=== PATIENT | female | born 2000 | race Hispanic/Latino ===

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

== ENCOUNTER 2020-01-09 15:26 | Day surgery (SDC) | payer OTHER ==
[2020-01-09] MEDS ORDERED: hydrALAZINE 20 MG/ML VIAL SLOW IVP PRN (16:57)
[2020-01-09 17:26] VITALS: BMI 36.6
[2020-01-09 17:53] LABS: Amnisure Test No Membranes Rupture (No Rupture)
[2020-01-09 17:54] LABS: Amnisure Internal Control QC ACCEPTABLE (ACCEPTABLE)
--- NOTE | 2020-01-09 19:30 | PRG ---
DATE OF SERVICE: 01/09/2020 PRESENTING COMPLAINT: Clear vaginal discharge. HISTORY OF PRESENT ILLNESS: Ms. Cruz is a 19-year-old G1 at 25 weeks, reports several days of clear discharge. She called [facility] and they could not get her appointment, so she decided to come to the emergency room. She denies bleeding or contractions, and reports an active fetus. SACK [employer]KER HISTORY: No OB chart available. The patient states she has had uncomplicated . PAST MEDICAL HISTORY: None. PAST SURGICAL HISTORY: None. ALLERGIES: DENIES. MEDICATIONS: vitamins. SOCIAL HISTORY: Denies tobacco, alcohol, or IV drug use. FAMILY HISTORY: Noncontributory. REVIEW OF SYSTEMS: Noncontributory. PHYSICAL EXAMINATION: GENERAL: Temperature 98.2, pulse 85, respirations 18, blood pressure 127/82. HEENT: Within normal limits. LUNGS: Clear to auscultation bilaterally. HEART: Regular rhythm. ABDOMEN: Soft, nontender. Fundal height 25. FHTs 150s. : Vulva without lesions. Vagina, slight thin discharge. AmniSure and VB3 collected. Cervical exam deferred. EXTREMITIES: Without clubbing, cyanosis, or edema. LABORATORY DATA: Laboratory revealed a negative AmniSure and a positive VB3 for Gardnerella. IMPRESSION: Bacterial vaginosis secondary to Gardnerella, second trimester . PLAN: Discharge home. Prescription given to the patient for Flagyl 500 p.o. b.i.d. x5 days. Keep scheduled followup with Dr. Denney. Job ID: [id number]
== END 2020-01-09 18:47 | disposition home health service (06) ==
LOC: L&D/OP 15:26
PROVIDERS: ATTEND Family Medicine
DX: O23.592 Infection of other part of genital tract in pregnancy, second trimester (principal); B96.89 Other specified bacterial agents as the cause of diseases classified elsewhere; Z3A.25 25 weeks gestation of pregnancy
CPT/HCPCS: 84112; 87480; 87510; 87660; 99284

== ENCOUNTER 2020-03-30 18:30 | Day surgery (SDC) | payer OTHER ==
[2020-03-30 19:20] VITALS: BMI 33.8
[2020-03-30 19:25] VITALS: BP 118/69; TEMP 98.9
[2020-03-30] MEDS ORDERED: hydrALAZINE 20 MG/ML VIAL SLOW IVP PRN (19:39)
[2020-03-30 20:04] LABS: Bilirubin Negative (Negative); Blood, Urine Negative (Negative); Clarity Clear (Clear); Glucose, Urine (Dipstick) Negative (Negative); Ketone, Urine Negative (Negative); Leukocyte Negative (Negative); Nitrite Negative (Negative); Protein, Urine (Dipstick) Negative (Neg-Trace); Specific Gravity, Urine 1.015 (1.005-1.030); Urobilinogen 0.2 mg/dL (Less than 2)
--- NOTE | 2020-03-31 16:03 | SS ---
DATE OF ADMISSION: 03/30/2020 DATE OF DISCHARGE: 03/30/2020 REGULAR PHYSICIAN: Aneudy Denney MD. CHIEF COMPLAINT: Cramping at home. HISTORY OF PRESENT ILLNESS: Ms. Cruz is a 19-year-old , G1, P0, with an estimated date of confinement of 04/01/2020, who presents complaining of cramping after being seen in Dr. Denney's office this afternoon. She does report an increase in urinary frequency, but denies ruptured membranes. Her care has been with Dr. Denney and has been reportedly without complications. PAST MEDICAL HISTORY: None. PAST SURGICAL HISTORY: None. CURRENT MEDICATIONS: vitamins. ALLERGIES: NO KNOWN ALLERGIES. SOCIAL HISTORY: Denies tobacco, alcohol, or drug use. FAMILY HISTORY: Unremarkable. REVIEW OF SYSTEMS: Denies nausea, vomiting, fever, chills, ruptured membranes, vaginal bleeding. Positive for urinary frequency. PHYSICAL EXAMINATION: VITAL SIGNS: Blood pressure is 118/69. Remainder of her vital signs are stable. GENERAL: She is pleasant, quiet, and in no acute distress. ABDOMEN: Soft, nontender, and gravid. Pelvic examination by Labor nurse shows the cervix to be closed and thick. heart rate tracing is stable. Spontaneous accelerations are seen. No decelerations are noted. Irregular irritability is noted. LABORATORY DATA: Urinalysis on straight cath shows a specific gravity of 1.015, negative protein, negative glucose, negative ketones, negative blood, negative nitrites, negative bilirubin and negative leukocyte esterase. ASSESSMENT: 1. 39-week intrauterine . 2. No evidence of urinary tract infection. PLAN: The patient will be dismissed to home. Labor precautions were reviewed with her and her mother in detail. She voiced understanding of her discharge instructions and was sent home in good condition. Job ID: [id number]
== END 2020-03-30 20:41 | disposition home health service (06) ==
LOC: L&D/OP 18:30
PROVIDERS: ATTEND Family Medicine
DX: O99.89 Other specified diseases and conditions complicating pregnancy, childbirth and the puerperium (principal); R10.9 Unspecified abdominal pain; Z3A.39 39 weeks gestation of pregnancy
CPT/HCPCS: 51701; 81003; 99282

== ENCOUNTER 2020-04-02 10:09 | Outpatient (CLI) | payer OTHER ==
[2020-04-03 12:08] LABS: SARS-CoV-2 MS2 Positive; SARS-CoV-2 N Gene Negative; SARS-CoV-2 S Gene Negative; SARS-CoV-2 by NAA Not Detected (NotDetected); SARS-CoV-2 orf1ab Negative
== END 2020-04-02 10:10 | disposition home or self-care (01) ==
LOC: LABSCS 10:09
PROVIDERS: ATTEND Family Medicine
DX: Z01.812 Encounter for preprocedural laboratory examination (principal); Z11.59 Encounter for screening for other viral diseases
CPT/HCPCS: 87635; U0003

== ENCOUNTER 2020-04-05 04:56 | Day surgery (SDC) | payer OTHER ==
--- NOTE | 2020-04-05 06:02 | PDOC.LDHP ---
Labor and Delivery H&P Chief complaint: contractions HPI: 19yo G1 presents for evaluation of irregular contractions and back pain that have been intermittent throughout the night. She is 40.3wks EGA (EDC 04/01/20) Grav: 1 Para: 0 Current complications: none Abnormal US findings: No Past Medical History: None Current medications: pre-demetrius vitamins Previous surgical history: none Allergies/Adverse Reactions: Allergies Allergy/AdvReac Type Severity Reaction Status Date / Time No Known Allergies Allergy Verified 03/30/20 19:18 Social history: none - Physical Exam Vital signs reviewed and normal: yes General: NAD, resting Heart: RRR Lungs: CTAB Abdomen: NTTP Extremeties: trace edema FHT: category 1 [place] contractions every: Irregular - Vaginal Exam cm dilated: 0 Effacement: 0% Station: -3 - OB Labs Blood type: unknown RH: unknown Antibody Screen: unknown HIV: unknown RPR: unknown HEPSAg: unknown 1 hour GCT: unknown GBS: unknown - Assessment Term intrauterine , not in labor - Has induction scheduled for tonight. - VS stable. Category 1 strip. - SVE: Closed, thick and high. - Will d/c home with labor precautions. - She will come in tonight for induction. PCP: Олег. OBGYN Faculty: I have seen the patient at bedside. Strip reviewed. Vitals wnl. I discussed with her her scheduled IOL this PM. CX still closed.
[2020-04-05] MEDS ORDERED: hydrALAZINE 20 MG/ML VIAL SLOW IVP PRN (06:05)
== END 2020-04-05 06:05 | disposition home or self-care (01) ==
LOC: L&D/OP 04:56
PROVIDERS: ATTEND Family Medicine
DX: O47.1 False labor at or after 37 completed weeks of gestation (principal); O99.89 Other specified diseases and conditions complicating pregnancy, childbirth and the puerperium; M54.9 Dorsalgia, unspecified; O48.0 Post-term pregnancy; Z3A.40 40 weeks gestation of pregnancy
CPT/HCPCS: 99282

== ENCOUNTER 2020-04-05 19:30 | Inpatient (IN) | payer OTHER ==
[~2020-04-05 19:30] MED LIST: Bupivacaine/Epinephrine 0.25% 30 ML VIAL ONE
[2020-04-05 20:28] VITALS: BMI 33.8
[2020-04-05] MEDS ORDERED: Ibuprofen 800 MG TAB PO PRN (21:13)
[2020-04-05] MEDS ORDERED: Promethazine HCl 25 MG/ML VIAL IM PRN (21:13)
[2020-04-05] MEDS ORDERED: NS / Oxytocin 40 units/1000ml 1,000 ML IV PRN (21:13)
[2020-04-05] MEDS ORDERED: Carboprost 250 MCG/ML AMP IM PRN (21:13)
[2020-04-05] MEDS ORDERED: Diphenoxylate HCl/Atropine Tablet PO PRN (21:13)
[2020-04-05] MEDS ORDERED: Methylergonovine 0.2 MG/ML VIAL IM PRN (21:13)
[2020-04-05] MEDS ORDERED: hydrALAZINE 20 MG/ML VIAL SLOW IVP PRN (21:13)
[2020-04-05] MEDS ORDERED: Lidocaine 1% (PF) 30 ML VIAL SC PRN (21:13)
[2020-04-05] MEDS ORDERED: HYDROcodone/Acetaminophen 5/325 mg Tablet PO PRN (21:13)
[2020-04-05] MEDS ORDERED: Misoprostol 200 MCG TAB PR PRN (21:13)
[2020-04-05] MEDS ORDERED: Butorphanol Tartrate 1 MG/ML VIAL SLOW IVP PRN (21:13)
[2020-04-05] MEDS ORDERED: Ondansetron PF 4 MG/2 ML Vial IVP PRN (21:13)
[2020-04-05] MEDS ORDERED: NS w/ Oxytocin 10 units 500 ML IV SCH ×2 (21:15)
[2020-04-05] MEDS: Misoprostol 100 MCG TAB VAG SCH (21:28)
[2020-04-05 21:39] LABS: Hemoglobin 11.7 g/dL (12.0-16.0); Mean Corpuscular Hemoglobin 34.9 pg (25.0-35.0); Mean Corpuscular Volume 99.7 fL (78.0-98.0); Mean Platelet Volume 7.9 fL (7.4-10.4); Platelet Count 284 thou/uL (130-400); RBC Distribution Width 11.3 % (11.5-14.5); Red Blood Cell (RBC) Count 3.35 mill/uL (4.00-5.20)
[2020-04-05 22:19] LABS: Syphilis Antibody Nonreactive (Nonreactive); Syphilis Antibody Index 0.02 S/CO (<1.00 Non-Reactive)
[2020-04-06 00:08] LABS: HBSAg Index 0.15 S/CO (0-0.99); Hep B Surf Ag Non-Reactive S/CO (NonReactive)
[2020-04-06] MEDS: Lactated Ringer's 1,000 ML IV SCH ×3 (01:40→10:21)
[2020-04-06] MEDS: Misoprostol 100 MCG TAB VAG SCH ×4 (01:40→17:43)
[2020-04-06] MEDS ORDERED: Fentanyl 4 mcg/Bup 0.1% Cadd 100 ML ONE (09:31)
[2020-04-06] MEDS ORDERED: EPHEDRINE 25 MG/5 ML SYRINGE SLOW IVP PRN (10:23)
[2020-04-06] MEDS ORDERED: Ondansetron PF 4 MG/2 ML Vial IVP PRN ×2 (10:23→17:45)
[2020-04-06] MEDS ORDERED: Acetaminophen 325 MG TAB PO PRN (10:23)
[2020-04-06] MEDS ORDERED: diphenhydrAMINE 50 MG/ML VIAL IVP PRN (10:23)
[2020-04-06] MEDS ORDERED: Lactated Ringer's 500 ML IV PRN (10:23)
[2020-04-06] MEDS ORDERED: Promethazine HCl 25 MG/ML VIAL IM PRN (10:23)
[2020-04-06] MEDS ORDERED: Naloxone HCl 0.4 mg/ml Vial IVP PRN ×2 (10:23)
[2020-04-06] MEDS ORDERED: Communication Order-Pharmacy FS SCH (10:30)
[2020-04-06] MEDS ORDERED: Fentanyl 4 mcg/Bupivacaine 0.1% Cassette 100 ML EPIDURAL SCH (10:30)
[2020-04-06] MEDS ORDERED: Lidocaine 1% (PF) 30 ML VIAL ONE (12:56)
[2020-04-06] MEDS ORDERED: NS / Oxytocin 40 units/1000ml 1,000 ML ONE ×2 (12:56→17:49)
[2020-04-06] MEDS ORDERED: diphenhydrAMINE 25 MG CAP PO PRN (17:45)
[2020-04-06] MEDS ORDERED: Preparation H Ointment 28 GM TUBE PR PRN (17:45)
[2020-04-06] MEDS ORDERED: hydrALAZINE 20 MG/ML VIAL SLOW IVP PRN (17:45)
[2020-04-06] MEDS ORDERED: Milk Of Magnesia 30 ML UDCUP PO PRN (17:45)
[2020-04-06] MEDS ORDERED: Lanolin Ointment 7 GM TUBE TOP PRN (17:45)
[2020-04-06] MEDS ORDERED: NS / Oxytocin 40 units/1000ml 1,000 ML IV SCH (17:45)
[2020-04-06] MEDS ORDERED: Bisacodyl 10 MG SUPP PR PRN (17:45)
[2020-04-06] MEDS ORDERED: HYDROcodone/Acetaminophen 5/325 mg Tablet PO PRN (17:45)
[2020-04-06] MEDS: Docusate Calcium (SURFAK) 240 MG CAP PO SCH (20:34)
[2020-04-06] MEDS: Ibuprofen 800 MG TAB PO SCH (20:34)
--- NOTE | 2020-04-07 00:17 | DN ---
DATE OF PROCEDURE: 04/06/2020 PREOPERATIVE DIAGNOSIS: Term . POSTOPERATIVE DIAGNOSIS: Term , delivered. PROCEDURE PERFORMED: Spontaneous vaginal delivery. ANESTHESIA: Epidural. DESCRIPTION OF EVENTS: I was present for delivery of this is a 19-year-old female, G1, P0, now P1, on 04/06/2020. A male infant was delivered in OA presentation over an intact perineum. No nuchal cord was encountered. The remainder of the delivery was uneventful and without difficulties. Cord was clamped x2, and a vigorous male infant was placed on the maternal chest for skin to skin contact. Cord blood was obtained. The placenta delivered spontaneously and intact. A three-vessel cord was noted. The posterior vaginal floor laceration was repaired with 2-0 Vicryl in the usual fashion. ESTIMATED BLOOD LOSS: 200. No other lacerations were seen. DISPOSITION: She was taken to Recovery in stable condition. Job ID: [id number]
[2020-04-07] MEDS: Ibuprofen 800 MG TAB PO SCH ×3 (06:07→21:36)
[2020-04-07 06:12] LABS: Hemoglobin 11.5 g/dL (12.0-16.0); Mean Corpuscular Hemoglobin 34.3 pg (25.0-35.0); Mean Platelet Volume 7.4 fL (7.4-10.4); Platelet Count 230 thou/uL (130-400); RBC Distribution Width 11.4 % (11.5-14.5); Red Blood Cell (RBC) Count 3.35 mill/uL (4.00-5.20); White Blood Cell (WBC) Count 12.4 thou/uL (4.8-10.8)
[2020-04-07] MEDS: Prenatal Vitamin 1 TAB PO SCH (08:40)
[2020-04-07] MEDS: Docusate Calcium (SURFAK) 240 MG CAP PO SCH ×2 (08:40→21:36)
[2020-04-07] MEDS ORDERED: Adacel (T-DAP) 0.5 ML SYRINGE IM ONE (09:00)
[2020-04-07] MEDS: Ferrous Sulfate 325 MG TAB PO SCH ×2 (09:15→13:49)
[2020-04-08] MEDS: Ibuprofen 800 MG TAB PO SCH (05:36)
[2020-04-08 08:25] VITALS: BP 124/59; TEMP 98
[2020-04-08] MEDS: Prenatal Vitamin 1 TAB PO SCH (08:59)
[2020-04-08] MEDS: Ferrous Sulfate 325 MG TAB PO SCH (08:59)
[2020-04-08] MEDS: Docusate Calcium (SURFAK) 240 MG CAP PO SCH (09:02)
== END 2020-04-08 11:30 | disposition home or self-care (01) | DRG 807 ==
LOC: L&D 20:06 → 3SW 04-06 18:37
PROVIDERS: ADMIT Family Medicine; ATTEND Family Medicine
PROC: 10E0XZZ Delivery of Products of Conception, External Approach (ICD-10-PCS; principal; 2020-04-06)
PROC: 10907ZC Drainage of Amniotic Fluid, Therapeutic from Products of Conception, Via Natural or Artificial Opening (ICD-10-PCS; 2020-04-06)
PROC: 3E033VJ Introduction of Other Hormone into Peripheral Vein, Percutaneous Approach (ICD-10-PCS; 2020-04-06)
PROC: 3E0P7VZ Introduction of Hormone into Female Reproductive, Via Natural or Artificial Opening (ICD-10-PCS; 2020-04-06)
DX: O48.0 Post-term pregnancy (principal); Z37.0 Single live birth; Z3A.40 40 weeks gestation of pregnancy; O70.0 First degree perineal laceration during delivery
CPT/HCPCS: 36415; 51702; 85027; 86780; 86850; 86900; 86901; 87340; J0595; J2001; J2590

== ENCOUNTER 2023-04-27 06:37 | Emergency (ER) | payer OTHER ==
[2023-04-27] MEDS ORDERED: Dexamethasone 4 MG TAB ONE (07:19)
== END 2023-04-27 07:52 | disposition home or self-care (01) ==
LOC: ERS 06:37
DX: R09.81 Nasal congestion (principal); R51.9 Headache, unspecified; R11.10 Vomiting, unspecified
CPT/HCPCS: 99283; J8540

== ENCOUNTER 2023-06-12 12:17 | Outpatient (CLI) | payer OTHER | END 2023-06-12 12:18 | disposition home or self-care (01) | LOC: BICULT 12:17 | PROVIDERS: ATTEND Family Medicine | DX: Z34.82 Encounter for supervision of other normal pregnancy, second trimester (principal); Z3A.21 21 weeks gestation of pregnancy | CPT/HCPCS: 76805 ==

== ENCOUNTER 2023-07-20 10:50 | Emergency (ER) | payer OTHER ==
[2023-07-20 12:24] LABS: #Monocytes 0.6 thou/uL (0.11-0.59); #Neutrophils 4.7 thou/uL (1.40-6.50); %Basophils 0.2 % (0.0-1.0); %Eosinophils 0.5 % (0.0-10.0); %Lymphocytes 10.6 % (21.0-51.0); %Monocytes 9.2 % (0.0-10.0); %Neutrophils 76.7 % (42.0-75.0); Hematocrit 37.3 % (36.0-47.0); Hemoglobin 12.5 g/dL (12.0-16.0); Mean Corpuscular HGB CONC 33.5 g/dL (32.0-36.0); Mean Corpuscular Hemoglobin 33.1 pg (27.0-31.0); Mean Corpuscular Volume 98.7 fl (78.0-98.0); Mean Platelet Volume 9.1 fL (7.4-10.4); Platelet Count 228 10x3/uL (130-400); RBC Distribution Width 12.5 % (11.5-14.5); Red Blood Cell (RBC) Count 3.78 mill/uL (4.20-5.40); White Blood Cell (WBC) Count 6.1 10x3/uL (4.8-10.8)
[2023-07-20 12:49] LABS: ALT (SGPT) 13 U/L (8-55); AST (SGOT) 17 U/L (5-34); Albumin 3.8 g/dL (3.5-5.0); Alkaline Phosphatase 70 U/L (40-110); Anion Gap 14 mmol/L (10-20); BUN (Urea Nitrogen) 7 mg/dL (7.0-18.7); Bilirubin, Total 0.2 mg/dL (0.2-1.2); Calc. Creatinine Clearance 0 mL/min (70-130); Calcium 8.3 mg/dL (7.8-10.44); Carbon Dioxide 22 mmol/L (22-29); Chloride 104 mmol/L (98-107); Estimated GFR 131; Glucose 92 mg/dL (70-105); Potassium 3.6 mmol/L (3.5-5.1); Protein, Total 6.8 g/dL (6.0-8.3); Sodium 136 mmol/L (136-145)
[2023-07-20 13:02] LABS: SARS-CoV-2 NAA Rapid Test Not Detected (NotDetected)
== END 2023-07-20 16:21 | disposition short-term general hospital (02) ==
LOC: ERS 10:50
DX: J02.9 Acute pharyngitis, unspecified (principal); Z20.822 Contact with and (suspected) exposure to COVID-19
CPT/HCPCS: 76815; 80053; 85025; 85379